=== PATIENT | female | born 1960 | race Caucasian/White ===

== ENCOUNTER 2019-04-16 16:05 | Emergency (ER) | payer BC ==
--- NOTE | 2019-04-16 18:07 | UC ---
Respiratory Complaint HPI - HPI Summary HPI Summary: 58 year old female with PMH + for thyroid disease presents with cough, sore throat, fatigue, fever, chills starting this AM. chest tightness/ cough sevre , treated wtih Nyquil well, however increased fatigue. Recently returned from [place]. - History of Current Complaint Stated Complaint: FLU LIKE SYMPTOMS Time Seen by Provider: 04/16/19 17:57 Hx Obtained From: Patient, Family/[employer] - ?: No Onset/Duration: Sudden Onset Timing: Constant Severity Initially: Moderate Severity Currently: Moderate Pain Scale Used: 0-10 Numeric Character: Cough: Nonproductive Aggravating Factors: Deep Breaths Associated Signs And Symptoms: Positive: Dyspnea, Fever, Chills, URI, Nasal Congestion, Sinus Discomfort. Negative: Dizziness, Calf Pain, Calf Swelling - Allergies/Home Medications Allergies/Adverse Reactions: Allergies Allergy/AdvReac Type Severity Reaction Status Date / Time iodine Allergy Unknown Verified 04/16/19 18:36 Reaction Details Home Medications: Home Medications Losartan/Hydrochlorothiazide [Losartan-Hctz 50-12.5 mg Tab] 1 tab DAILY [History Confirmed 04/16/19] Thyroid,Pork [[place] Thyroid] 1 tab DAILY 04/16/19 [History Confirmed 04/16/19] Review of Systems All Other Systems Reviewed And Are Negative: Yes Constitutional: Positive: Fever - starting this afternoon, > 101 despite medication, Chills, Fatigue ENT: Positive: Sore Throat, Nasal Discharge, Sinus Congestion, Sinus Pain/ Tenderness Respiratory: Positive: Shortness Of Breath, Cough Gastrointestinal: Positive: Negative Genitourinary: Positive: Negative Is Patient Immunocompromised?: No Physical Exam Triage Information Reviewed: Yes Appearance: No Pain Distress, Well-Nourished, Ill-Appearing - moderate Vital Signs Reviewed: Yes Eyes: Positive: Conjunctiva Clear, Discharge - watery b/l ENT: Positive: Pharynx normal, Nasal congestion, TM red - minimal b/l, Sinus tenderness - b/l, Uvula midline. Negative: Tonsillar swelling, Tonsillar exudate Neck: Positive: Supple, Tenderness @ - submand b/l Respiratory: Positive: Chest non-tender, No respiratory distress, No accessory muscle use, Crackles, Wheezing Cardiovascular: Positive: RRR, No Murmur, Tachycardia - mild Neurological Exam: Normal Neurological: Positive: Alert Psychological Exam: Normal Respiratory Course/Dx - Course Course Of Treatment: Called over to [facility] discussed case with DAYSI Francis. DUe to severity of symptoms with sudden onset, vital signs, and CXR findings, patient sent to ER for further work up and care. - Differential Dx/Diagnosis Provider Diagnosis: PNA (pneumonia) Discharge ED - Sign-Out/Discharge Documenting (check all that apply): Patient Departure All imaging exams completed and their final reports reviewed: Yes - Discharge Plan Condition: Guarded Disposition: HOME-RECOMMEND TO ED Referrals: Missy Childress PA [Primary Care Provider] - Additional Instructions: - Due to sudden symptoms and chest X_ray findings, recommended that you go to ER for further evaluation. - Billing Disposition and Condition Condition: GUARDED Disposition: Home-Recommend to ED - Attestation Statements Provider Attestation: I was available for consult. This patient was seen by the DONNA. The patient was not presented to, seen by, or examined by me. -Eduardo
[2019-04-16 18:21] LABS: Influenza A Molecular Negative (Negative); Influenza B Molecular Negative (Negative)
[2019-04-16] MEDS ORDERED: Ondansetron ODT TAB* 4 MG SL ONE (18:35)
[2019-04-16] MEDS ORDERED: Albuterol 2.5 MG/3 ML NEB.SOL* (0.083%) INH ONE (18:36)
[2019-04-16 18:42] VITALS: BP 110/76
[2019-04-16] MEDS ORDERED: Acetaminophen TAB* 325 MG PO ONE (18:44)
== END 2019-04-16 19:12 | disposition home health service (06) ==
LOC: UCCORT 16:05
DX: J18.9 Pneumonia, unspecified organism (principal); Z91.09 Other allergy status, other than to drugs and biological substances
CPT/HCPCS: 71046; 99213; A9270-GY; G0463